=== PATIENT | male | born 1975 ===

== ENCOUNTER 2018-08-21 14:40 | Emergency (ER) | payer OTHER ==
--- NOTE | 2018-08-21 14:45 | ER Report ---
History and Physical Time Seen By MD: 14:45 HPI/ROS CHIEF COMPLAINT: Back pain HISTORY OF PRESENT ILLNESS: This is a 43-year-old male who presents to the emergency department via EMS from [facility] for low back pain. Patient had an injury out 10 years ago and since then has had intermittent back pain, progressively getting worse. He did have 3 injections last year, patient states that has been doing okay however this last summer approximately 6 weeks ago was riding his 4 palacios aggravated his lower back again, his been exercising, stretching and working out to prevent any further problems. Last week he aggravated his lower back again, has been progressively getting worse this week, did contact Dr. Maurice at [facility] who he has seen before, he was supposed to see him today at 1:30 but the patient states that this morning he was having some much pain, sent down on the toilet bent forward and was unable to sit back up, patient states that this pain is different than the pain that he's had in the past the pain does not radiate down his right buttock, now is radiating into his right groin. No loss of bowel or bladder, no urinary retention. No recent fevers or injuries. Patient states that the pain was so intense he took a hydrocodone around 11:00, called the ambulance and subsequently was transferred to the ER. Patient denies chest pain or shortness of breath. Sensation intact in all extremities. Patient did get 250 g IV fentanyl and round, 2 mg IV Versed and 4 mg IV Zofran. REVIEW OF SYSTEMS: Constitutional: No fever, no chills. Eyes: No discharge. ENT: No sore throat. Cardiovascular: No chest pain, no palpitations. Respiratory: No cough, no shortness of breath. Gastrointestinal: No abdominal pain, no vomiting. Genitourinary: No hematuria. Musculoskeletal: As above. Skin: No rashes. Neurological: No headache. Allergies: Coded Allergies: No Known Drug Allergies (Unverified , 08/21/18) Home Meds Active Scripts Ketorolac Tromethamine (KETOROLAC TROMETHAMINE) 10 Mg Tab, 10 MG PO Q6H, #16 TAB 0 Refills Prov:[facility] [employer] TECHNICIAN-BC 08/21/18 Ondansetron (ZOFRAN ODT) 4 Mg Tab.rapdis, 4 MG PO Q6H PRN for NAUSEA/VOMITING, #20 TAB.NANDINI 0 Refills Prov:[facility] 08/21/18 Hydrocodone Bit/Acetaminophen (HYDROCODON-ACETAMINOPHEN 5-325) 1 Each Tablet, 1 EACH PO Q4-6H PRN for PAIN, #12 TAB 0 Refills Prov:[facility] 08/21/18 Diazepam (VALIUM) 5 Mg Tablet, 5 MG PO 2-3XD, #15 TAB 0 Refills Prov:[facility] 08/21/18 Reported Medications Hydrocodone/Ibuprofen (HYDROCODONE-IBUPROFEN 10-200) 1 Each Tablet, 1 EACH PO Q8H 08/21/18 Naproxen Sodium (ALEVE) 220 Mg Capsule, 220 MG PO TID, CAPSULE 08/21/18 Past Medical/Surgical History The patient has a past medical and surgical history of IBS, back pain, 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 Reviewed Nurses Notes: Yes Constitutional Vital Sign - Last 24 Hours 08/21/18 08/21/18 08/21/18 08/21/18 14:42 14:43 14:55 15:00 Temp 98.8 Pulse 73 69 Resp 18 B/P (MAP) 110/77 (88) 110/77 116/79 (91) Pulse Ox 95 94 O2 Delivery Room Air 08/21/18 08/21/18 08/21/18 08/21/18 15:10 15:30 15:35 16:45 Pulse 64 62 B/P (MAP) 110/78 (89) 109/69 (82) Pulse Ox 93 95 08/21/18 08/21/18 08/21/18 08/21/18 16:55 17:00 17:10 17:15 Pulse 59 61 60 B/P (MAP) 103/65 (78) Pulse Ox 92 91 93 08/21/18 08/21/18 08/21/18 08/21/18 17:30 17:45 17:50 18:00 Pulse 67 65 77 B/P (MAP) 122/73 (89) 108/70 (83) Pulse Ox 96 94 100 08/21/18 08/21/18 08/21/18 08/21/18 18:05 18:20 18:30 18:35 Pulse 77 ??? B/P (MAP) 116/73 (87) Pulse Ox 94 100 08/21/18 08/21/18 08/21/18 18:47 18:50 19:00 B/P (MAP) 106/68 (81) 102/67 (79) Pulse Ox 100 Physical Exam General Appearance: The patient is alert, has no immediate need for airway protection and no signs of toxicity. Eyes: Pupils equal and round no pallor or injection. ENT, Mouth: Mucous membranes are moist. Respiratory: There are no retractions, lungs are clear to auscultation. Cardiovascular: Regular rate and rhythm. Gastrointestinal: Abdomen is soft and non tender, no masses, bowel sounds normal. Neurological: Alert and oriented 4. Moving all extremities. Following all commands. No focal neuro deficits. Sensation intact in all extremities. Skin: Warm and dry, no rashes. Musculoskeletal: Neck is supple non tender. Extremities increased low back pain with straight leg raise on the right, strength 3 out of 5 on the right, 4 out of 5 on the left. DIFFERENTIAL DIAGNOSIS: After history and physical exam differential diagnosis was considered for back pain including but not limited to muscular pain, herniat ed disc, spine fracture, intra-abdominal causes and urinary tract infection. Medical Decision Making EKG/Imaging Imaging Examination: ORBITS FOREIGN BODY 1 VIEW Comparison: None. History: for MRI Findings: Dental amalgam. No radiopaque foreign body is otherwise identified. IMPRESSION: No radiopaque foreign body in the region of the orbits. Report Dictated By: Renzo Tinajero MD at 08/21/2018 3:57 PM Report E-Signed By: Renzo Tinajero MD at 08/21/2018 3:58 PM WSN:[id number] Location: [facility] [place] Patient: Noel Holloway : 1975 Visit/Account:[id number] Date of Sevice: 08/21/2018 Study: MRI lumbar spine without gadolinium contrast. Indication: Worsening low back pain Comparison study: November 29, 2016 Technique:Multiplanar MRI sequences were obtained through the lumbar spine without the use of gadolinium contrast. Findings:The examination demonstrates the presence of normal alignment of the lumbar vertebrae. There is no abnormal signal identified within the lumbar or sacral vertebrae. The conus medullaris is located posterior to the T12/L1 disc space level. There is no evidence of abnormality of the lumbar nerve roots. Disc spaces: L1/2:At this level, there is no significant disc pathology. There is no significant neural foraminal stenosis or spinal stenosis. L2/3:At this level, there is no significant disc pathology. There is no significant neural foraminal stenosis or spinal stenosis. L3/4: At this level, there is a diffuse disc bulge with a superimposed right central disc extrusion. There is mild to moderate spinal stenosis. There is effacement of the ventral thecal sac and the right lateral recess. There is mild right and no significant left neural foraminal stenosis. This level has worsened as compared to the previous study. L4/5: At this level, there is a diffuse disc bulge. There is a superimposed left central disc extrusion. There is effacement of the ventral left thecal sac. There is effacement of the lateral recesses left greater than right. There is facet and ligamentous hypertrophy present. There is mild to moderate spinal stenosis. There is no significant right and moderate left neural foraminal stenosis. This level has worsened as compared to the previous study. L5/S1: At this level, there is a circumferential disc bulge. There is a central annular tear. There is mild bilateral neural foraminal stenosis. There is no significant spinal stenosis. This level is unchanged. 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 There is been interval worsening of the L3-4 and L4-5 levels. Please see the body of the report for description of individual disc levels. Report Dictated By: Anatoliy Nguyen at 08/21/2018 4:57 PM Report E-Signed By: Anatoliy Nguyen at 08/21/2018 5:01 PM WSN:[id number] ED Course/Re-evaluation Clinical Indication for ER IV: Hydration, IV Access ED Course The patient was admitted to a room. A history and physical were obtained. Differential diagnoses were considered. An IV was started via [facility]. Patient was given 250 g IV fentanyl, 2 mg IV Versed and 4 mg IV Zofran and r oute from [facility]. After examination of the patient's and his description of his lower back pain and the changes that he's had over the last week, elected to MRI rather than x-ray or CT. The MRI showing changes in the L3-L4, L4-L5 disc space from previous studies, no abscess. Patient was given 30 mg IV Toradol, 10 mg IV Valium. Patient did well with these medications, is more comfortable and feels that they would be able to discharge. The patient and his will stay the night in a hotel, rest get her prescriptions filled tomorrow and return to [facility] tomorrow. The plan then will be to return to [facility] Friday for reevaluation with either Dr. Maurice or Dr. Lawson. The patient and his are in agreement with this plan of care and the patient was discharged. The patient was also discharged with take-home pack for Valium, hydrocodone, Toradol and Zofran. 08/21/2018 6:18:18 pm I did speak with Dr. Victor, the orthopedist construction secretary, we reviewed the MRI and he said we can send the patient home with muscle relaxers, pain medication and antiinflammatories and have him return on Friday for follow up. I discussed this with the patient and his , they are in agreement the this. The patient will stay in [facility] then return to [facility] tomorrow morning, return to [place] on Friday. Decision to Disposition Date: Aug 21, 2018 Decision to Disposition Time: 19:35 Depart Departure Latest Vital Signs Vital Signs Date Time Temp Pulse Resp B/P (MAP) Pulse Ox O2 Delivery O2 Flow Rate FiO2 08/21/18 19:00 102/67 (79) 08/21/18 18:50 100 08/21/18 18:20 ??? 08/21/18 14:43 98.8 18 Room Air Impression: Primary Impression: Lumbar back pain Condition: Improved Disposition: HOME OR SELF-CARE Referrals: LILIANA LAWSON MD,JA Frances MD New Scripts Ketorolac Tromethamine (KETOROLAC TROMETHAMINE) 10 Mg Tab 10 MG PO Q6H, #16 TAB 0 Refills Prov: [facility]- 08/21/18 Ondansetron (ZOFRAN ODT) 4 Mg Tab.rapdis 4 MG PO Q6H PRN for NAUSEA/VOMITING, #20 TAB.NANDINI 0 Refills Prov: [facility] 08/21/18 Hydrocodone Bit/Acetaminophen (HYDROCODON-ACETAMINOPHEN 5-325) 1 Each Tablet 1 EACH PO Q4-6H PRN for PAIN, #12 TAB 0 Refills Prov: [facility] [employer] TECHNICIAN-BC 08/21/18 Diazepam (VALIUM) 5 Mg Tablet 5 MG PO 2-3XD, #15 TAB 0 Refills Prov: [facility] [employer] TECHNICIAN-BC 08/21/18 Patient Instructions: Acute Low Back Pain (ED) Additional Instructions: Be sure to take the medications as directed and monitor closely as they can cause severe respiratory depression. If you take the Toradol, do not take Ibuprofen in addition as they are in the same drug class. Call [facility] first thing Friday morning and try to get a follow up appointment with Dr. Lawson or Dr. Maurice. Drink plenty of water. Strict bedrest this weekend. If you have any changes that are concerning please return to the ED immediately. [facility] SUPPLY TECHNICIAN-BC Aug 21, 2018 14:45
[2018-08-21] MEDS ORDERED: NAPR220C12 PO (14:50)
[2018-08-21] MEDS ORDERED: [UNRECOGNIZED DRUG - CODE] PO (14:50)
--- NOTE | 2018-08-21 16:02 | RADIOLOGY IMAGING REPORT ---
FACILITY: [facility] [place] PATIENT NAME: Noel Holloway : 1975 MR: [id number] V: [id number] EXAM DATE: ORDERING PHYSICIAN: [facility] LO[facility]Y TECHNOLOGIST: Location: [facility] Patient: Noel Holloway : 1975 Visit/Account:[id number] Date of Sevice: 08/21/2018 Examination: ORBITS FOREIGN BODY 1 VIEW Comparison: None. History: for MRI Findings: Dental amalgam. No radiopaque foreign body is otherwise identified. IMPRESSION: No radiopaque foreign body in the region of the orbits. Report Dictated By: Renzo Tinajero MD at 08/21/2018 3:57 PM Report E-Signed By: Renzo Tinajero MD at 08/21/2018 3:58 PM WSN:[id number]
--- NOTE | 2018-08-21 17:06 | RADIOLOGY IMAGING REPORT ---
FACILITY: [facility] PATIENT NAME: Noel Holloway : 1975 MR: [id number] V: [id number] EXAM DATE: ORDERING PHYSICIAN: K[facility]IS[facility] LOONEY TECHNOLOGIST: Location: [facility] [place] Patient: Noel Holloway : 1975 Visit/Account:[id number] Date of Sevice: 08/21/2018 Study: MRI lumbar spine without gadolinium contrast. Indication: Worsening low back pain Comparison study: November 29, 2016 Technique:Multiplanar MRI sequences were obtained through the lumbar spine without the use of gadolin ium contrast. Findings:The examination demonstrates the presence of normal alignment of the lumbar vertebrae. There is no abnormal signal identified within the lumbar or sacral vertebrae. The conus medullaris is located posterior to the T12/L1 disc space level. There is no evidence of abnormality of the lumbar nerve roots. Disc spaces: L1/2:At this level, there is no significant disc pathology. There is no significant neural foraminal stenosis or spinal stenosis. L2/3:At this level, there is no significant disc pathology. There is no significant neural foraminal stenosis or spinal stenosis. L3/4: At this level, there is a diffuse disc bulge with a superimposed right central disc extrusion. There is mild to moderate spinal stenosis. There is effacement of the ventral thecal sac and the righ t lateral recess. There is mild right and no significant left neural foraminal stenosis. This level h as worsened as compared to the previous study. L4/5: At this level, there is a diffuse disc bulge. There is a superimposed left central disc extrusi on. There is effacement of the ventral left thecal sac. There is effacement of the lateral recesses l eft greater than right. There is facet and ligamentous hypertrophy present. There is mild to moderate spinal stenosis. There is no significant right and moderate left neural foraminal stenosis. This lev el has worsened as compared to the previous study. L5/S1: At this level, there is a circumferential disc bulge. There is a central annular tear. There i s mild bilateral neural foraminal stenosis. There is no significant spinal stenosis. This level is un changed. 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 There is been interval worsening of the L3-4 and L4-5 levels. Please see the body of the report for description of individual disc levels. Report Dictated By: Anatoliy Nguyen at 08/21/2018 4:57 PM Report E-Signed By: Anatoliy Nguyen at 08/21/2018 5:01 PM WSN:[id number]
[2018-08-21] MEDS ORDERED: ONDANSETRON 4 MG ODT TH SL ONE (18:15)
[2018-08-21] MEDS ORDERED: DIAZEPAM 50 MG/10 ML MDV IVP ONE (18:15)
[2018-08-21] MEDS ORDERED: KETOROLAC 30 MG/ML VIAL IVP ONE (18:15)
[2018-08-21] MEDS ORDERED: ACET/HYDROC 5/325MG TH ER ONLY 2 TAB/BOTTLE PO ONE (18:15)
[2018-08-21] MEDS ORDERED: KETOROLAC TROM 10 MG TAB TH PO ONE (18:15)
[2018-08-21] MEDS ORDERED: DIAZEPAM 5 MG TAB TH 2 TAB/BOTTLE PO ONE ×2 (18:15→18:55)
[2018-08-21] MEDS ORDERED: HYDR-385 PO (18:27)
[2018-08-21] MEDS ORDERED: DIA5 PO (18:27)
[2018-08-21] MEDS ORDERED: KET10 PO (18:27)
[2018-08-21] MEDS ORDERED: ONDA4TAB PO (18:27)
[2018-08-21 19:00] VITALS: BP 102/67
[2018-08-22] MEDS ORDERED: DIA5 PO (14:08)
[2018-08-22] MEDS ORDERED: LOR5/325 PO (14:08)
[2018-08-22] MEDS ORDERED: LIDO700A19 TP (14:08)
== END 2018-08-21 19:50 | disposition home or self-care (01) ==
LOC: EDUNIT# 14:40 → ER 14:46
DX: M54.5 Low back pain (principal)
CPT/HCPCS: 70030; 72148; 96374; 96375; 99284; J1885; J3360; S0119

== ENCOUNTER 2018-08-21 20:01 | Observation (INO) | payer OTHER ==
[~2018-08-21] VITALS: Ht 182.9 cm; Wt 77.2 kg
[~2018-08-21 20:01] MED LIST: DIA5 PO; HYDR-385 PO; KET10 PO; NAPR220C12 PO; ONDA4TAB PO; [UNRECOGNIZED DRUG - CODE] PO
--- NOTE | 2018-08-21 20:26 | ER Report ---
History and Physical Time Seen By MD: 20:25 Hx. of Stated Complaint: just released from er. unable to get into the parking lot beofer having uncontrolled back pain again. states his back has not spasmed this time yet HPI/ROS CHIEF COMPLAINT: Low back pain HISTORY OF PRESENT ILLNESS: This is a 43-year-old male who presents to the emergency department for low back pain, patient was just discharged from the ER approximately 20-30 minutes ago. The patient's was taking him across the street to the hotel, patient developed increased low back pain such that he was not able to function, brought him back to the ER. Patient arrives in significant pain, unable to sit, or change positions without significant pain. No loss of bowel or bladder. No urinary retention. No fevers or chills. No chest pain or shortness breath. REVIEW OF SYSTEMS: Constitutional: No fever, no chills. Eyes: No discharge. ENT: No sore throat. Cardiovascular: No chest pain, no palpitations. Respiratory: No cough, no shortness of breath. Gastrointestinal: No abdominal pain, no vomiting. Genitourinary: No hematuria. Musculoskeletal: As above. Skin: No rashes. Neurological: No headache. Allergies: Coded Allergies: No Known Drug Allergies (Unverified , 08/21/18) Home Meds Active Scripts Ketorolac Tromethamine (KETOROLAC TROMETHAMINE) 10 Mg Tab, 10 MG PO Q6H, #16 TAB 0 Refills Prov:[facility] 08/21/18 Ondansetron (ZOFRAN ODT) 4 Mg Tab.rapdis, 4 MG PO Q6H PRN for NAUSEA/VOMITING, #20 TAB.NANDINI 0 Refills Prov:[facility] 08/21/18 Hydrocodone Bit/Acetaminophen (HYDROCODON-ACETAMINOPHEN 5-325) 1 Each Tablet, 1 EACH PO Q4-6H PRN for PAIN, #12 TAB 0 Refills Prov:[facility] 08/21/18 Diazepam (VALIUM) 5 Mg Tablet, 5 MG PO 2-3XD, #15 TAB 0 Refills Prov:[facility] 08/21/18 Reported Medications Hydrocodone/Ibuprofen (HYDROCODONE-IBUPROFEN 10-200) 1 Each Tablet, 1 EACH PO Q8H 08/21/18 Naproxen Sodium (ALEVE) 220 Mg Capsule, 220 MG PO TID, CAPSULE 08/21/18 Past Medical/Surgical History Past medical and surgical history of irritable bowel syndrome, back pain, stenosis and disc bulging in the lower back. Hx Substance Use Disorder: No Hx Alcohol Use: No Constitutional Vital Sign - Last 24 Hours 08/21/18 08/21/18 08/21/18 08/21/18 20:01 20:11 20:12 20:16 Temp 97.9 Pulse ??? 57 66 Resp 30 B/P (MAP) 115/73 (87) 115/73 Pulse Ox 100 91 08/21/18 08/21/18 20:31 20:46 Pulse 60 62 Pulse Ox 100 92 Physical Exam General Appearance: The patient is alert, has no immediate need for airway protection and no signs of toxicity. Eyes: Pupils equal and round no pallor or injection. ENT, Mouth: Mucous membranes are moist. Respiratory: There are no retractions, lungs are clear to auscultation. Cardiovascular: Regular rate and rhythm. Gastrointestinal: Abdomen is soft and non tender, no masses, bowel sounds normal. Neurological: Alert and oriented 4. Moving all extremities. Following all commands. No focal neuro deficits. No numbness or tingling in the extremities. Skin: Warm and dry, no rashes. Musculoskeletal: Neck is supple non tender. No deformities, step-offs or crepitus of the lower back. Extremities are nontender, nonswollen and have full range of motion. DIFFERENTIAL DIAGNOSIS: After history and physical exam differential diagnosis was considered for back pain. Medical Decision Making ED Course/Re-evaluation Clinical Indication for ER IV: IV Access ED Course The patient was admitted to a room. A history and physical obtained. Differential diagnoses were considered. I did speak with Dr. Victor and Dr. Urias as noted below. The patient had continued pain in the lower back after discharge and did return, did admit the patient to the medical floor for intractable pain. An IV was started and the patient was given 1 mg IV Dilaudid and 4 mg IV Zofran. The patient and his had no other questions or concerns at this time. The patient was admitted to the medical floor. 08/21/2018 9:02:51 pm I did speak with Dr. Victor again regarding the patient's case, he suggested admitting to medicine for pain control. I did speak with Dr. David Urias, she is accepted the patient and the hospitalist services for low back pain and intractable pain. Decision to Disposition Date: Aug 21, 2018 Decision to Disposition Time: 21:02 Depart Departure Latest Vital Signs Vital Signs Date Time Temp Pulse Resp B/P (MAP) Pulse Ox O2 Delivery O2 Flow Rate FiO2 08/21/18 20:46 62 92 08/21/18 20:12 97.9 30 115/73 Impression: Primary Impression: Lumbar back pain Additional Impression: Intractable pain Condition: Condition Unchanged Disposition: Admitted from ER Problem Qualifiers [facility] Aug 21, 2018 20:25
[2018-08-21] MEDS ORDERED: ONDANSETRON 4 MG/2 ML VIAL IVP ONE (20:50)
[2018-08-21] MEDS ORDERED: HYDROMORPHONE HCL 1 MG/ML SYRINGE IVP ONE (20:50)
[2018-08-21] MEDS ORDERED: ONDANSETRON 4 MG/2 ML VIAL ONE (21:53)
[2018-08-21 22:01] VITALS: BP 121/76
[2018-08-21] MEDS ORDERED: ONDANSETRON 4 MG/2 ML VIAL IVP PRN (22:25)
[2018-08-21] MEDS ORDERED: FLUSH 10 ML SYR IVP PRN (22:25)
[2018-08-21] MEDS ORDERED: INFLUENZA VIRUS VAC 0.5ML SYR IM ONLY ONE (22:25)
[2018-08-21] MEDS ORDERED: PROMETHAZINE 25 MG/ML 1 ML AMP IVP PRN (22:25)
[2018-08-21] MEDS ORDERED: ACETAMINOPHEN 325 MG TAB PO PRN (22:25)
[2018-08-21] MEDS ORDERED: MORPHINE 2 MG/ML SYR IVP PRN (22:30)
[2018-08-21] MEDS ORDERED: methylPREDNIS SUCC 125 MG/2ML IVP ONE (22:35)
--- NOTE | 2018-08-21 23:07 | History & Physical ---
History of Present Illness Chief Complaint The patient is a 43 year old male with PMH significant for back injury with intermittent back, pain s/p epidural injections X 3, who presents with escalating pain over the past few days. History of Present Illness The patient's gives the majority of the history as the patient is sedated due to pain meds received in ER. 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 He was reaching forward with pruners to try and remove a branch off of a line when he developed the acute onset of low back discomfort. Since that time, he has intermittently battled flare-ups. The patient saw Dr. Lepe about a year ago and was referred to Dr. Maurice for epidural injections. He has had 3 injections so far. The patient notes that his pain improves after each injection. The patient has continued to work as a hazmat tanker driver. He was using a [employer] machine at work to strengthen his core. He was doing crunches but noticed some discomfort when he was done. His back pain and spasm gradually worsened over the next 48 hours. He was able to work on Friday, but had to stay home yesterday due to severe pain. Today the patient was supposed to see Dr. Maurice at [facility], but could not ride in the car as his pain was severely exacerbated with sitting. EMS was called and the patient was transferred to [facility] ER for evaluation. The patient's pain with this flare has been mostly in his back with some radiation into his groin. He denies numbness or weakness. He denies loss of control of bowel or bladder. An MRI was done in the ER and showed worsening of his disc disease and spinal stenosis (mild to moderate) at L3-L4 and L4-L5. At L5-S1 there were disc abnormalities but no stenosis and this level was unchanged from his previous study. The patient was given muscle relaxants and pain medications and seemed to improve. He was discharged but as his was wheeling him out, he had recurrence of severe pain and returned to the ER. He was recommended for admission for intractable back pain. History Problems: (1) Lumbar stenosis Status: Chronic (2) Lumbar disc disease Status: Chronic (3) IBS (irritable bowel syndrome) Status: Chronic Home Meds Active Scripts Ketorolac Tromethamine (KETOROLAC TROMETHAMINE) 10 Mg Tab, 10 MG PO Q6H, #16 TAB 0 Refills Prov:[facility] 08/21/18 Ondansetron (ZOFRAN ODT) 4 Mg Tab.rapdis, 4 MG PO Q6H PRN for NAUSEA/VOMITING, #20 TAB.NANDINI 0 Refills Prov:[facility] 08/21/18 Hydrocodone Bit/Acetaminophen (HYDROCODON-ACETAMINOPHEN 5-325) 1 Each Tablet, 1 EACH PO Q4-6H PRN for PAIN, #12 TAB 0 Refills Prov:[facility] 08/21/18 Diazepam (VALIUM) 5 Mg Tablet, 5 MG PO 2-3XD, #15 TAB 0 Refills Prov:[facility] 08/21/18 Reported Medications Hydrocodone/Ibuprofen (HYDROCODONE-IBUPROFEN 10-200) 1 Each Tablet, 1 EACH PO Q8H 08/21/18 Naproxen Sodium (ALEVE) 220 Mg Capsule, 220 MG PO TID, CAPSULE 08/21/18 Allergies: Coded Allergies: No Known Drug Allergies (Unverified , 08/21/18) Patient History: Back pain FATHER Elevated blood lipids MOTHER BROTHER OR SISTER FHx: scoliosis BROTHER OR SISTER Other Social/Family Hx The patient is and lives with his in [place]. He is a hazmat tanker driver for the [employer]. He has 2 boys, both are healthy. Hx Smoking: No Smoking Status: Never Smoker Hx Alcohol Use: Yes Alcohol Use: Occassional (Very rarely.) Hx Substance Use Disorder: No History of IV Drug Use: No Review of Systems Constitutional: No Fever, No Weight Loss, No Chills, No Night Sweats Neurological: Other (Trembling due to pain.); No Weakness Eyes: No Vision Change Gastrointestinal: Nausea (After pain meds.) Musculoskeletal: Pain (Low back radiating into groin.) Exam Vital Signs Vital Signs Date Time Temp Pulse Resp B/P (MAP) Pulse Ox O2 Delivery O2 Flow Rate FiO2 08/21/18 22:01 97.9 53 12 121/76 (91) 100 Nasal Cannula 1.0 General Appearance: Other (Somnolent due to pain meds. ) Neuro: Other (Normal sensation both legs/feet. Strength not tested due to pain. Patellar reflex was normal bilaterally.) Cardiovascular: Other (Bradycardic, regular.) Respiratory: No Respiratory Distress, Clear to Auscultation GI: Abd Soft and Non-Tender Extremities: Warm, Perfused, Other (No edema.) Psych: Appropriate Mood & Affect Medical Decision Making EKG / Imaging Imaging FACILITY: [facility] PATIENT NAME: Noel Holloway : 1975 MR: [id number] V: [id number] EXAM DATE: [id number] ORDERING PHYSICIAN: [facility] TECHNOLOGIST: Location: [facility] Patient: Noel Holloway : 1975 Visit/Account:[id number] Date of Sevice: 08/21/2018 Study: MRI lumbar spine without gadolinium contrast. Indication: Worsening low back pain Comparison study: November 29, 2016 Technique:Multiplanar MRI sequences were obtained through the lumbar spine without the use of gadolinium contrast. Findings:The examination demonstrates the presence of normal alignment of the lumbar vertebrae. There is no abnormal signal identified within the lumbar or sacral vertebrae. The conus medullaris is located posterior to the T12/L1 disc space level. There is no evidence of abnormality of the lumbar nerve roots. Disc spaces: L1/2:At this level, there is no significant disc pathology. There is no significant neural foraminal stenosis or spinal stenosis. L2/3:At this level, there is no significant disc pathology. There is no significant neural foraminal stenosis or spinal stenosis. L3/4: At this level, there is a diffuse disc bulge with a superimposed right central disc extrusion. There is mild to moderate spinal stenosis. There is effacement of the ventral thecal sac and the right lateral recess. There is mild right and no significant left neural foraminal stenosis. This level has worsened as compared to the previous study. L4/5: At this level, there is a diffuse disc bulge. There is a superimposed left central disc extrusion. There is effacement of the ventral left thecal sac. There is effacement of the lateral recesses left greater than right. There is facet and ligamentous hypertrophy present. There is mild to moderate spinal stenosis. There is no significant right and moderate left neural foraminal stenosis. This level has worsened as compared to the previous study. L5/S1: At this level, there is a circumferential disc bulge. There is a central annular tear. There is mild bilateral neural foraminal stenosis. There is no significant spinal stenosis. This level is unchanged. 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 There is been interval worsening of the L3-4 and L4-5 levels. Please see the body of the report for description of individual disc levels. Report Dictated By: Anatoliy Nguyen at 08/21/2018 4:57 PM Report E-Signed By: Anatoliy Nguyen at 08/21/2018 5:01 PM WSN:DS2HI Assessment and Plan Problems: (1) Intractable low back pain Status: Acute Assessment & Plan: Will admit for pain control. Will give antiemetics prn. Will order muscle relaxant prn. Will give Solu Medrol 60mg IV. PT/OT consults ordered. No alarm symptoms or signs noted. (2) Lumbar stenosis Status: Chronic Assessment & Plan: Related to back injury [address] Maurice and Dr. Lepe at [facility]. Has had 3 epidural injections with some relief of his symptoms in the past. (3) Lumbar disc disease Status: Chronic Assessment & Plan: See above. (4) IBS (irritable bowel syndrome) Status: Chronic Assessment & Plan: On multiple "homeopathic" treatments. Time Spent on Plan of Care: < 30 min Venous Thromboembolism Antithrombotics Is Pt On Any Antithrombotics?: Yes Exam Sepsis Risk: No Definite Risk MARISSA GILMORE MD Aug 21, 2018 23:07
[2018-08-22 03:01] VITALS: BP 105/58
[2018-08-22 08:56] VITALS: BP 119/68
[2018-08-22] MEDS ORDERED: ENOXAPARIN 40 MG/0.4ML SYR SC SCH (09:00)
--- NOTE | 2018-08-22 10:27 | Hospitalist Progress Note ---
Subjective Progress Notes Subjective He reports "maybe a little better". Physical Exam Vital Signs Date Time Temp Pulse Resp B/P (MAP) Pulse Ox O2 Delivery O2 Flow Rate FiO2 08/22/18 08:56 92 08/22/18 08:56 Room Air 08/22/18 08:56 97.9 62 16 119/68 (85) 08/22/18 03:01 0.5 General Appearance: Alert, Awake Assessment and Plan Problems: (1) Intractable low back pain Status: Acute Assessment & Plan: Will give another dose of Solu-Medrol 60mg IV today. Continue analgesics, antispasmodics. PT/OT consults ordered. No focal neuro deficits. (2) Lumbar stenosis Status: Chronic Assessment & Plan: Related to back injury [address] Maurice and Dr. Lepe at [facility]. Has had 3 epidural injections with some relief of his symptoms in the past. Will work on pain/spasm control, mobility. PT/OT to see. (3) Lumbar disc disease Status: Chronic Assessment & Plan: See above. (4) IBS (irritable bowel syndrome) Status: Chronic Assessment & Plan: On multiple "homeopathic" treatments. Exam Sepsis Risk: No Definite Risk LAURA GILMORE MD Aug 22, 2018 10:27
[2018-08-22] MEDS ORDERED: LIDOCAINE 5% PATCH TP SCH (10:30)
[2018-08-22] MEDS ORDERED: methylPREDNIS SUCC 125 MG/2ML IVP ONE (10:30)
[2018-08-22] MEDS: APAP/HYDROCODONE 325/5 TAB PO PRN ×3 (11:04→19:25)
[2018-08-22 12:06] VITALS: BP 120/70
[2018-08-22] MEDS ORDERED: DIAZEPAM 5 MG TAB PO PRN (12:30)
[2018-08-22 13:14] VITALS: Ht 182.9 cm; Wt 77.2 kg
[2018-08-22] MEDS ORDERED: DIA5 PO (14:08)
[2018-08-22] MEDS ORDERED: LOR5/325 PO (14:08)
[2018-08-22] MEDS ORDERED: LIDO700A19 TP (14:08)
--- NOTE | 2018-08-22 14:20 | Hospitalist Depart ---
Discharge Summary Reason for Hosp/Final Diag: (1) Intractable low back pain Status: Acute Hospital Course & Plan: Due to lumbar disc disease. It appeared his main problem was local muscle spasm. He was started on analgesics, antispasmodics, and given a couple doses of IV steroids. Physical therapy did see him during his stay. He did not have any focal neurologic deficits. He showed significant improvement in his symptoms. He will need to have close follow up with Dr. Lepe or Kaylene at [facility] as an outpatient. He will likely need ongoing Physical therapy as well. He was advised to be off work for next 3-5 days. (2) Lumbar stenosis Status: Chronic Hospital Course & Plan: Related to back injury 10 years ago. He sees Drs. Natalie ac and Roberth at [facility]. He has had 3 epidural injections with some relief of his symptoms in the past. See above. (3) Lumbar disc disease Status: Chronic Hospital Course & Plan: See above. (4) IBS (irritable bowel syndrome) Status: Chronic Hospital Course & Plan: On multiple "homeopathic" treatments. Departure Weight (Pounds): 170 Weight (Ounces): 2.0 Imaging PATIENT NAME: Noel Holloway : 1975 MR: [id number] V: [id number] EXAM DATE: ORDERING PHYSICIAN: [facility] TECHNOLOGIST: Location: [facility] [place] Patient: Noel Holloway : 1975 Visit/Account:[id number] Date of Sevice: 08/21/2018 Study: MRI lumbar spine without gadolinium contrast. Indication: Worsening low back pain Comparison study: November 29, 2016 Technique:Multiplanar MRI sequences were obtained through the lumbar spine without the use of gadolinium contrast. Findings:The examination demonstrates the presence of normal alignment of the lumbar vertebrae. There is no abnormal signal identified within the lumbar or sacral vertebrae. The conus medullaris is located posterior to the T12/L1 disc space level. There is no evidence of abnormality of the lumbar nerve roots. Disc spaces: L1/2:At this level, there is no significant disc pathology. There is no significant neural foraminal stenosis or spinal stenosis. L2/3:At this level, there is no significant disc pathology. There is no significant neural foraminal stenosis or spinal stenosis. L3/4: At this level, there is a diffuse disc bulge with a superimposed right central disc extrusion. There is mild to moderate spinal stenosis. There is effacement of the ventral thecal sac and the right lateral recess. There is mild right and no significant left neural foraminal stenosis. This level has worsened as compared to the previous study. L4/5: At this level, there is a diffuse disc bulge. There is a superimposed left central disc extrusion. There is effacement of the ventral left thecal sac. There is effacement of the lateral recesses left greater than right. There is facet and ligamentous hypertrophy present. There is mild to moderate spinal stenosis. There is no significant right and moderate left neural foraminal stenosis. This level has worsened as compared to the previous study. L5/S1: At this level, there is a circumferential disc bulge. There is a central annular tear. There is mild bilateral neural foraminal stenosis. There is no significant spinal stenosis. This level is unchanged. 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 There is been interval worsening of the L3-4 and L4-5 levels. Please see the body of the report for description of individual disc levels. Report Dictated By: Anatoliy Nguyen at 08/21/2018 4:57 PM Report E-Signed By: Anatoliy Nguyen at 08/21/2018 5:01 PM WSN:DS2HI Condition: Improved Discharge: Home Time Spent: > 30 min Discharge Instructions Home Meds Active Scripts Lidocaine (Lidocaine) 5 % Adh..patch, 1 EACH TP QDAY, #10 PATCH 1 Refill Prov:LAURA GILMORE MD 08/22/18 Hydrocodone Bit/Acetaminophen (HYDROCODON-ACETAMINOPHEN 5-325) 1 Each Tablet, 1- 2 EACH PO Q4H PRN for PAIN, #30 TAB 0 Refills Prov:LAURA GILMORE MD 08/22/18 Diazepam (VALIUM) 5 Mg Tablet, 5 MG PO Q6H PRN for MUSCLE SPASMS, #20 TAB 0 Refills Prov:LAURA GILMORE MD 08/22/18 Discontinued Reported Medications Hydrocodone/Ibuprofen (HYDROCODONE-IBUPROFEN 10-200) 1 Each Tablet, 1 EACH PO Q8H 08/21/18 Naproxen Sodium (ALEVE) 220 Mg Capsule, 220 MG PO TID, CAPSULE 08/21/18 Discontinued Scripts Ketorolac Tromethamine (KETOROLAC TROMETHAMINE) 10 Mg Tab, 10 MG PO Q6H, #16 TAB 0 Refills Prov:[facility] 08/21/18 Ondansetron (ZOFRAN ODT) 4 Mg Tab.rapdis, 4 MG PO Q6H PRN for NAUSEA/VOMITING, #20 TAB.NANDINI 0 Refills Prov:[facility] 08/21/18 Hydrocodone Bit/Acetaminophen (HYDROCODON-ACETAMINOPHEN 5-325) 1 Each Tablet, 1 EACH PO Q4-6H PRN for PAIN, #12 TAB 0 Refills Prov:[facility] 08/21/18 Diazepam (VALIUM) 5 Mg Tablet, 5 MG PO 2-3XD, #15 TAB 0 Refills Prov:[facility] 08/21/18 Follow up Referrals: Orthopedics @ [facility] with LILIANA LEPE MD Diet: Regular Activity: As Tolerated (No lifting more than 5 pounds. No twisting, bending, stooping. Walk short distances 3-5 times a day. Off work for next 3-5 days or until released by Dr. Grimm or Roberth to return to work.) Special Instructions: Off work for next 3-5 days or until released by Dr. Lepe or Kaylene. Rest for next 2-3 days, but walk short distances 3-5 times a day. Follow up with Dr. Lepe or Kaylene in next week. Copies to: LILIANA LEPE MD; JA GRIMM MD ; Venous Thromboembolism Antithrombotics Is Pt On Any Antithrombotics?: Yes LAURA GILMORE MD Aug 22, 2018 14:20
[2018-08-22] MEDS ORDERED: PATCH REMOVAL 1 EA TP SCH (21:00)
== END 2018-08-22 19:30 | disposition home or self-care (01) ==
LOC: ER 20:21 → INTOOBSV 20:56 → MED 20:56
PROVIDERS: ADMIT Internal Medicine; ATTEND Internal Medicine
DX: M54.5 Low back pain (principal); M48.061 Spinal stenosis, lumbar region without neurogenic claudication; M51.36 Other intervertebral disc degeneration, lumbar region; K58.9 Irritable bowel syndrome, unspecified
CPT/HCPCS: 96372; 96374; 96375; 97116; 97161; 99284; G0378; J1170; J1650; J2405; J2550; J2930